=== PATIENT | female | born 1945 | race Caucasian/White ===

== ENCOUNTER 2016-12-05 17:36 | Emergency (ER) | payer OTHER ==
[2016-12-05 17:47] VITALS: BP 174/82; PULSE 59; RESP 16; TEMP 97.7; O2SAT 98
--- NOTE | 2016-12-05 18:26 | EDPHY ---
H & P Stated Complaint: "burning red" eyes x 1 week, family concerned "glaucoma" HPI/ROS: Chief complaint: Eye discomfort History of present illness: This is a 70-year-old female who presents to the emergency department with family and friends for eye discomfort. Patient with the onset of symptoms over the last week. Her eyes have been red, itchy and in the morning she is noting them to be matted shut with pustular discharge. Symptoms began in her left eye and then spread to the right eye. No reported precipitating factors. No alleviating or aggravating factors. No other associated signs or symptoms including no changes in vision, no actual pain in the eye, no fevers or cold symptoms, no history of foreign body getting into the eye that she knows of recently, no trauma. - Personal History Current Tetanus/Diphtheria Vaccine: Unsure Current Tetanus Diphtheria and Acellular Pertussis (TDAP): Unsure - Medical/Surgical History Hx Asthma: No Hx Chronic Respiratory Disease: No Hx Diabetes: No Hx Cardiac Disease: No Hx Renal Disease: No Hx Cirrhosis: No Hx Alcoholism: No Hx HIV/AIDS: No Hx Splenectomy or Spleen Trauma: No Other PMH: palpitations - Social History Smoking Status: Never smoked - Physical Exam Exam: General Appearance: Alert and no distress. Eyes: Matting of the eyelashes are noted. Trace watery discharge. Diffuse injection of the conjunctiva bilaterally. No subconjunctival hemorrhage. No hyphema. No hypopyon. PERRLA. EOM intact without reported discomfort. Red reflex present bilaterally. ENT: Tympanic membranes external auditory canals and external ears unremarkable. Nasopharynx unremarkable. Oropharynx unremarkable. Respiratory: Chest is nontender, lungs are clear to auscultation. Cardiac: regular rate and rhythm. Musculoskeletal: Neck is supple and nontender. Extremities have full range of motion and are nontender. Skin: No rashes or lesions. Periorbital tissue is unremarkable. Constitutional: Initial Vital Signs Temperature (C) 36.5 C 12/05/16 17:42 Heart Rate 59 L 12/05/16 17:42 Respiratory Rate 16 12/05/16 17:42 Blood Pressure 174/82 H 12/05/16 17:42 O2 Sat (%) 98 12/05/16 17:42 O2 Delivery Mode Room Air Allergies/Adverse Reactions: No Known Allergies Allergy (Unverified 12/05/16 17:40) Home Medications: Medication Instructions Recorded Aspirin 12/05/16 Losartan Potassium 12/05/16 Moxifloxacin HCl [Vigamox] 1 drops OP TID 7 Days 12/05/16 Medical Decision Making ED Course/Re-evaluation: Patient discussed with my secondary supervising physician Dr. Saud Williamson. Patient presents to the emergency department for red, itchy eyes with pustular discharge. I believe her history and physical exam is consistent with conjunctivitis. We will start her on Vigamox. She is discharged home. Home care is discussed including warm compresses and hygiene. She is referred to Ophthalmology for recheck. Return precautions are given. Differential Diagnosis: Included but not limited to blepharitis, conjunctivitis, periorbital cellulitis , corneal abrasion, corneal ulceration unlikely glaucoma Departure - Departure Disposition: Home, Routine, Self-Care Clinical Impression: Conjunctivitis Qualifiers: Conjunctivitis type: acute Acute conjunctivitis type: unspecified Laterality: bilateral Qualified Code(s): H10.33 - Unspecified acute conjunctivitis, bilateral Condition: Good Instructions: Conjunctivitis (ED) Additional Instructions: Follow-up with Ophthalmology next week for a recheck. If symptoms worsen or new symptoms develop, return to the emergency room for a recheck. Alison tashia mihir de seguimiento con el [facility] la proxima semana. - Si los sintomas empeoran o si desarrolla nuevos sintomas, regrese a la jacob de emergencia para ser evaluada. Referrals: NONE *PRIMARY CARE P,. [Primary Care Provider] - As per Instructions Georgie Weems MD [Medical Doctor] - As per Instructions Prescriptions: Moxifloxacin HCl [Vigamox] 1 drops OP TID 7 Days Print Language: Georgian
== END 2016-12-05 18:25 | disposition home or self-care (01) ==
DX: H10.33 Unspecified acute conjunctivitis, bilateral (principal)